=== PATIENT | female | born 2000 | race Caucasian/White ===

== ENCOUNTER 2018-05-22 21:48 | Emergency (ER) | payer OTHER ==
--- NOTE | 2018-05-22 22:46 | EDPHYS ---
Physician Documentation [facility] Name: Jj Nagy Age: 17 yrs Sex: Female : 2000 Arrival Date: 05/22/2018 Time: 21:56 Bed Waiting Private MD: ED Physician Usman Franco HPI: 05/22 22:42 This 17 yrs old Female presents to ER via Ambulatory with complaints of Ear jr8 Pain. 22:42 The patient presents with pain. The complaints affect the right ear. Onset: The jr8 symptoms/episode began/occurred acutely, today. Modifying factors: The symptoms are alleviated by nothing, the symptoms are aggravated by pulling on ears, touching. Associated signs and symptoms: The patient has no apparent associated signs or symptoms. Severity of symptoms: At their worst the symptoms were mild in the emergency department the symptoms are unchanged. The patient has not experienced similar symptoms in the past. The patient has not recently seen a physician. Stated that she had been getting over a cold. [place] odd sensation in right ear tonight that now has turned into pain . 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 - Social history:: Smoking status: Patient/guardian denies using tobacco. - Ebola Screening: : No symptoms or risks identified at this time. ROS: 22:42 Eyes: Negative for injury, pain, redness, and discharge, Neck: Negative for injury, jr8 pain, and swelling, Cardiovascular: Negative for chest pain, palpitations, and edema, Respiratory: Negative for shortness of breath, cough, wheezing, and pleuritic chest pain, Abdomen/GI: Negative for abdominal pain, nausea, vomiting, diarrhea, and constipation, Back: Negative for injury and pain, MS/Extremity: Negative for injury and deformity, Skin: Negative for injury, rash, and discoloration, Neuro: Negative for headache, weakness, numbness, tingling, and seizure. 22:42 ENT: Positive for ear pain, rhinorrhea, sinus congestion, Negative for drainage from ear(s), tinnitus, sore throat. Exam: 22:42 Head/Face: Normocephalic, atraumatic. Eyes: Pupils equal round and reactive to light, jr8 extra-ocular motions intact. Lids and lashes normal. Conjunctiva and sclera are non-icteric and not injected. Cornea within normal limits. Periorbital areas with no swelling, redness, or edema. Neck: Trachea midline, no thyromegaly or masses palpated, and no cervical lymphadenopathy. Supple, full range of motion without nuchal rigidity, or vertebral point tenderness. No Meningismus. Cardiovascular: Regular rate and rhythm with a normal S1 and S2. No gallops, murmurs, or rubs. Normal PMI, no JVD. No pulse deficits. Respiratory: Lungs have equal breath sounds bilaterally, clear to auscultation and percussion. No rales, rhonchi or wheezes noted. No increased work of breathing, no retractions or nasal flaring. Abdomen/GI: Soft, non-tender, with normal bowel sounds. No distension or tympany. No guarding or rebound. No evidence of tenderness throughout. Back: No spinal tenderness. No costovertebral tenderness. Full range of motion. Skin: Warm, dry with normal turgor. Normal color with no rashes, no lesions, and no evidence of cellulitis. MS/ Extremity: Pulses equal, no cyanosis. Neurovascular intact. Full, normal range of motion. Neuro: Awake and alert, GCS 15, oriented to person, place, time, and situation. Cranial nerves II-XII grossly intact. Motor strength 5/5 in all extremities. Sensory grossly intact. Cerebellar exam normal. Normal gait. 22:42 ENT: External ear(s): are unremarkable, Ear canal(s): are normal, clear, TM's: bulging, on the right, dullness, on the right, erythema, that is moderate, on the right, Examination of the other ear shows no obvious abnormality, Nose: External nose: no obvious acute abnormality, Nasal septum: is midline, Nasal mucosa: moist, Turbinates: are normal, Mouth: Lips: moist, Oral mucosa: pink and intact, moist, Gums: pink, Tongue: is moist, Posterior pharynx: Airway: patent, Tonsils: are normal in appearance, no enlargement, no erythema, no exudate, no ulcerations, Uvula: midline, non-edematous, no erythema, swelling, is not appreciated, erythema, is not appreciated. Vital Signs: 22:03 BP 126 / 69; Pulse 81; Resp 16 S; Temp 99.7(O); Pulse Ox 100% on R/A; Weight 56.7 kg bb (R); Height 5 ft. 2 in. (157.48 cm) (R); Pain 6/10; 22:03 Body Mass Index 22.86 (56.70 kg, 157.48 cm) MDM: 22:42 Data reviewed: vital signs, nurses notes, and as a result, I will discharge patient. jr8 Data interpreted: Pulse oximetry: on room air is 100 %. Interpretation: normal. Counseling: I had a detailed discussion with the patient and/or guardian regarding: the historical points, exam findings, and any diagnostic results supporting the discharge/admit diagnosis, the need for outpatient follow up, a family practitioner, to return to the emergency department if symptoms worsen or persist or if there are any questions or concerns that arise at home. 22:45 Patient medically screened. jr8 Administered Medications: No medications were administered Disposition: 05/23 03:34 Co-signature as Attending Physician, Usman Franco MD. Disposition: 05/22/18 22:45 Discharged to Home. Impression: Acute suppurative otitis media. - Condition is Stable. - Discharge Instructions: Otitis Media, Adult. - Prescriptions for Augmentin 875- 125 mg Oral Tablet - take 1 tablet by ORAL route every 12 hours for 10 days; 20 tablet. - Medication Reconciliation Form, Thank You Letter, Antibiotic Education, Prescription Opioid Use form. - Follow up: Private Physician; When: 5 - 6 days; Reason: Recheck today's complaints, Continuance of care, Re-evaluation by your physician. - Problem is new. - Symptoms have improved. Signatures: Karena Vásquez RN RN bb Bc Paniagua PA PA jr8 Usman Franco MD MD Corrections: (The following items were deleted from the chart) 05/22 22:53 22:45 05/22/2018 22:45 Discharged to Home. Impression: Acute suppurative otitis media. bb Condition is Stable. Forms are Medication Reconciliation Form, Thank You Letter, Antibiotic Education, Prescription Opioid Use. Follow up: Private Physician; When: 5 - 6 days; Reason: Recheck today's complaints, Continuance of care, Re-evaluation by your physician. Problem is new. Symptoms have improved. jr8
--- NOTE | 2018-05-22 22:46 | ER ---
Nurse's Notes [facility] Name: Jj Nagy Age: 17 yrs Sex: Female : 2000 Arrival Date: 05/22/2018 Time: 21:56 Bed Waiting [facility] MD: Diagnosis: Acute suppurative otitis media Presentation: 05/22 22:02 Presenting complaint: Patient states: she is having right ear pain for several hours. bb Transition of care: patient was not received from another setting of care. Onset of symptoms was May 22, 2018. Risk Assessment: Do you want to hurt yourself or someone else? Patient reports no desire to harm self or others. Initial Sepsis Screen: Does the patient meet any 2 criteria? No. Patient's initial sepsis screen is negative. Does the patient have a suspected source of infection? No. Patient's initial sepsis screen is negative. Care prior to arrival: None. 22:02 Method Of Arrival: Ambulatory 22:02 Acuity: INDIRA 5 Triage Assessment: 22:03 General: Appears in no apparent distress. Behavior is calm, cooperative. Pain: bb Complains of pain in right ear Pain currently is 6 out of 10 on a pain scale. EENT: Reports pain in right ear. Neuro: Level of Consciousness is awake, alert, obeys commands, Oriented to person, place, time, situation. Cardiovascular: No deficits noted. Respiratory: Respiratory effort is even, unlabored. Derm: Skin is pink, warm \T\ dry. Musculoskeletal: Circulation, motion, and sensation intact. 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 - Social history:: Smoking status: Patient/guardian denies using tobacco. - Ebola Screening: : No symptoms or risks identified at this time. Screenin:40 Abuse screen: Denies threats or abuse. Nutritional screening: No deficits noted. bb Tuberculosis screening: No symptoms or risk factors identified. Fall Risk None identified. Assessment: 22:39 Reassessment: No changes from previously documented assessment. Bc HACKETT in triage room to evaluate pt. Vital Signs: 22:03 BP 126 / 69; Pulse 81; Resp 16 S; Temp 99.7(O); Pulse Ox 100% on R/A; Weight 56.7 kg bb (R); Height 5 ft. 2 in. (157.48 cm) (R); Pain 6/10; 22:03 Body Mass Index 22.86 (56.70 kg, 157.48 cm) [facility] ED Course: 21:56 Patient arrived in ED. es 22:03 Triage completed. bb 22:03 Arm band placed on Patient placed in waiting room, Patient notified of wait time. bb Family accompanied patient. 22:40 Patient has correct armband on for positive identification. Adult w/ patient. bb 22:40 No provider procedures requiring assistance completed. Patient did not have IV access bb during this emergency room visit. 22:42 Bc Paniagua PA is PHCP. jr8 22:42 Usman Franco MD is Attending Physician. jr8 Administered Medications: No medications were administered Outcome: 22:45 Discharge ordered by . jr8 22:53 Discharged to home ambulatory, with family. bb 22:53 Condition: stable 22:53 Discharge instructions given to patient, Instructed on discharge instructions, follow up and referral plans. medication usage, Demonstrated understanding of instructions, follow-up care, medications, Prescriptions given X 1. 22:53 Patient left the ED. bb Signatures: Karol Rivas Brenda, RN RN Bc Modi PA PA jr8
== END 2018-05-22 22:53 | disposition home or self-care (01) ==
LOC: ER 21:48
DX: H66.001 Acute suppurative otitis media without spontaneous rupture of ear drum, right ear (principal)
CPT/HCPCS: 99282